=== PATIENT | male | born 1950 | race Caucasian/White ===

== ENCOUNTER 2022-11-15 13:33 | Inpatient (IN) | payer OTHER ==
[~2022-11-15] VITALS: Ht 172.7 cm; Wt 109.7 kg
[2022-11-15] VITALS (8 sets, daily range): BP systolic 94–154; BP diastolic 50–72
[2022-11-15] MEDS ORDERED: MORPHINE SULFATE 4 MG/ML SYR/VIAL IV ONE (13:45)
[2022-11-15] MEDS ORDERED: SODIUM CHL 0.9% 50 ML ONE (14:01)
[2022-11-15] MEDS ORDERED: MIDAZOLAM HCL 2MG/2ML 2ml VIAL (1mg/ml) ONE (14:01)
[2022-11-15] MEDS ORDERED: fentaNYL CITRATE 100 MCG/2 ML VL ONE (14:01)
[2022-11-15] MEDS ORDERED: ANGIOMAX 250 MG VIAL IV ONE (14:01)
[2022-11-15] MEDS ORDERED: IODIXANOL 320MG/ML 100ML BTL IV ONE (14:03)
[2022-11-15] MEDS ORDERED: VERAPAMIL 2.5MG/ML INJ 2ML VIAL IV ONE ×2 (14:11→14:50)
[2022-11-15] MEDS ORDERED: LIDOCAINE 2%HCL (LOCAL ANESTH.) INJ 10ml MDV ONE (14:11)
[2022-11-15 14:14] LABS: Albumin 2.8 g/dL (3.4-5.0); BUN/Creatinine Ratio 18.8; Calcium 8.5 mg/dL (8.5-10.1); Magnesium 2.4 mg/dL (1.6-2.6); Potassium 3.9 mmol/L (3.5-5.1)
[2022-11-15 14:16] LABS: Bilirubin, Total 0.8 mg/dL (0.2-1.0); Total Protein 5.6 g/dL (6.4-8.2)
[2022-11-15] MEDS ORDERED: EPINEPHrine HCL 1 MG/10 ML SYRG ONE (14:23)
[2022-11-15] MEDS ORDERED: ATROPINE SULF 1 MG/10ml SYR ONE (14:23)
[2022-11-15] MEDS ORDERED: EPTIFIBATIDE INJ (2MG/ML) 10ML VIAL IV ONE ×2 (14:42→14:54)
[2022-11-15] MEDS ORDERED: TICAGRELOR 90 MG TAB ONE (14:56)
[2022-11-15] MEDS ORDERED: NITROGLYCERIN 0.4 MG SL TAB SL PRN (15:15)
[2022-11-15] MEDS ORDERED: MORPHINE SULFATE INJ 2 MG/ml SYRG IV PRN (15:15)
[2022-11-15] MEDS ORDERED: EPTIFIBATIDE DRIP(0.75MG/ML) 100 ML IV ONE ×2 (15:15→16:32)
[2022-11-15 15:23] LABS: INR 1.01 (0.9-1.15); Partial Thromboplastin Time 29.3 sec (24.6-33.4)
[2022-11-15 15:33] LABS: Basophils # (auto) 0 10 ^3/uL (0-0.2); Basophils % (auto) 0.6 % (0.0-2.0); Eosinophils # (auto) 0 10 ^3/uL (0-0.8); Hematocrit 33.7 % (41.0-53.0); Hemoglobin 11.5 g/dL (13.5-17.5); Lymphocytes % (auto) 21.8 % (10.0-50.0); Mean Corpuscular Hemoglobin 32.1 pg (28.0-32.0); Mean Corpuscular Volume 94.2 fL (80.0-100.0); Monocytes # (auto) 0.5 10 ^3/uL (0-1.3); Neutrophils # (auto) 3.1 10 ^3/uL (1.6-8.6); Neutrophils % (auto) 66.6 % (37.0-80.0); Nucleated Red Blood Cells % 0.1 %; Red Blood Cells 3.58 10^6/uL (4.5-5.90); Red Cell Distribution Width 14.3 % (11.8-14.3); White Blood Cell 4.6 10^3/uL (4.4-10.8)
[2022-11-15] MEDS ORDERED: FAMOTIDINE 20 MG TAB PO ONE (15:45)
[2022-11-15] MEDS ORDERED: ALL100T PO (18:17)
[2022-11-15] MEDS ORDERED: POTA-220 PO (18:17)
[2022-11-15] MEDS ORDERED: FURO1TAB32 PO (18:17)
[2022-11-15 18:53] LABS: Urine Bacteria NONE SEEN /hpf (None Seen); Urine Blood 1+ /uL (Negative); Urine Specific Gravity 1.008 (1.001-1.035); Urine WBC <1 /hpf (0 - 3)
[2022-11-15] MEDS: ATORVASTATIN 20 MG TAB PO SCH (21:37)
[2022-11-15] MEDS: TICAGRELOR 90 MG TAB PO SCH (22:00)
[2022-11-16] VITALS (7 sets, daily range): BP systolic 76–93; BP diastolic 41–48
[2022-11-16 02:28] LABS: INR 1.08 (0.9-1.15); Partial Thromboplastin Time 33.9 sec (24.6-33.4)
[2022-11-16 06:14] LABS: Basophils # (auto) 0 10 ^3/uL (0-0.2); Basophils % (auto) 0.7 % (0.0-2.0); Eosinophils # (auto) 0 10 ^3/uL (0-0.8); Eosinophils % (auto) 0.8 % (0.0-7.0); Hematocrit 28.9 % (41.0-53.0); Hemoglobin 9.7 g/dL (13.5-17.5); Lymphocytes # (auto) 0.9 10 ^3/uL (0.4-5.4); Mean Corpuscular Hemoglobin 31.8 pg (28.0-32.0); Mean Corpuscular Hgb Conc. 33.8 g/dL (32.0-36.0); Mean Corpuscular Volume 94.3 fL (80.0-100.0); Monocytes # (auto) 0.7 10 ^3/uL (0-1.3); Monocytes % (auto) 12.4 % (0.0-12.0); Neutrophils # (auto) 3.9 10 ^3/uL (1.6-8.6); Neutrophils % (auto) 70.1 % (37.0-80.0); Red Blood Cells 3.06 10^6/uL (4.5-5.90); Red Cell Distribution Width 14.2 % (11.8-14.3); White Blood Cell 5.6 10^3/uL (4.4-10.8)
[2022-11-16] MEDS ORDERED: ALBUMIN 5% 250 ML IV ONE (06:15)
[2022-11-16 06:48] LABS: Albumin 2.3 g/dL (3.4-5.0); BUN/Creatinine Ratio 25.3; Bilirubin, Total 0.6 mg/dL (0.2-1.0)
[2022-11-16] MEDS ORDERED: ASPirin 81 mg TAB PO ONE (07:00)
[2022-11-16] MEDS ORDERED: CLOPIDOGREL 300 MG TAB PO ONE (07:00)
[2022-11-16] MEDS: FAMOTIDINE 20 MG TAB PO SCH (10:48)
[2022-11-16] MEDS: ASPirin 81 mg TAB PO SCH (11:45)
[2022-11-16] MEDS: TICAGRELOR 90 MG TAB PO SCH ×2 (11:45→21:37)
[2022-11-16] MEDS ORDERED: FUROSEMIDE 40 MG/4 ML VIAL IV SCH (13:15)
[2022-11-16] MEDS: OCTREOTIDE ACETATE 100 MCG/ML VL SUBCUT SCH ×3 (14:00→21:39)
[2022-11-16] MEDS: MIDODRINE HCL 10 MG TAB PO SCH (18:58)
[2022-11-16] MEDS: ATORVASTATIN 20 MG TAB PO SCH (21:36)
[2022-11-17] VITALS (7 sets, daily range): BP systolic 73–90; BP diastolic 40–51
[2022-11-17] MEDS: MIDODRINE HCL 10 MG TAB PO SCH ×3 (05:55→18:56)
[2022-11-17] MEDS: OCTREOTIDE ACETATE 100 MCG/ML VL SUBCUT SCH ×3 (05:59→22:00)
[2022-11-17 06:25] LABS: Basophils # (auto) 0 10 ^3/uL (0-0.2); Eosinophils # (auto) 0.1 10 ^3/uL (0-0.8); Mean Corpuscular Volume 95.3 fL (80.0-100.0); Monocytes # (auto) 0.6 10 ^3/uL (0-1.3); Monocytes % (auto) 12.1 % (0.0-12.0); White Blood Cell 4.9 10^3/uL (4.4-10.8)
[2022-11-17 06:28] LABS: Basophils % (auto) 0.9 % (0.0-2.0); Eosinophils % (auto) 1.5 % (0.0-7.0); Hematocrit 24.8 % (41.0-53.0); Hemoglobin 8.3 g/dL (13.5-17.5); Lymphocytes # (auto) 0.9 10 ^3/uL (0.4-5.4); Lymphocytes % (auto) 17.7 % (10.0-50.0); Mean Corpuscular Hemoglobin 32.1 pg (28.0-32.0); Mean Corpuscular Hgb Conc. 33.7 g/dL (32.0-36.0); Neutrophils # (auto) 3.3 10 ^3/uL (1.6-8.6); Neutrophils % (auto) 67.8 % (37.0-80.0); Nucleated Red Blood Cells % 0.1 %; Red Cell Distribution Width 14.4 % (11.8-14.3)
[2022-11-17 06:45] LABS: BUN/Creatinine Ratio 23.5; Potassium 4.6 mmol/L (3.5-5.1)
[2022-11-17] MEDS ORDERED: FUROSEMIDE 40 MG TAB PO SCH (10:00)
[2022-11-17] MEDS: FAMOTIDINE 20 MG TAB PO SCH (11:18)
[2022-11-17] MEDS: ASPirin 81 mg TAB PO SCH (11:19)
[2022-11-17] MEDS: TICAGRELOR 90 MG TAB PO SCH ×2 (11:19→22:00)
[2022-11-17] MEDS ORDERED: FUROSEMIDE 40 MG/4 ML VIAL IV ONE (12:45)
[2022-11-17] MEDS: ALBUMIN 25% 100 ML IV SCH ×2 (14:17→14:40)
[2022-11-17] MEDS: DOPamine 1600MCG/ML D5W 250 ML IV SCH (14:27)
[2022-11-17] MEDS: SEVELAMER 800 MG TAB PO SCH (18:56)
[2022-11-17] MEDS: ATORVASTATIN 20 MG TAB PO SCH (22:00)
[2022-11-18 05:00] VITALS: BP 99/45
[2022-11-18 06:03] LABS: Basophils # (auto) 0.1 10 ^3/uL (0-0.2); Eosinophils # (auto) 0.1 10 ^3/uL (0-0.8); Lymphocytes # (auto) 0.8 10 ^3/uL (0.4-5.4); Lymphocytes % (auto) 18.5 % (10.0-50.0); Monocytes # (auto) 0.5 10 ^3/uL (0-1.3); Neutrophils # (auto) 2.8 10 ^3/uL (1.6-8.6); Red Cell Distribution Width 14.2 % (11.8-14.3)
[2022-11-18 06:06] LABS: Basophils % (auto) 1.2 % (0.0-2.0); Hematocrit 23.9 % (41.0-53.0); Hemoglobin 8.3 g/dL (13.5-17.5); Mean Corpuscular Hemoglobin 32.8 pg (28.0-32.0); Mean Corpuscular Hgb Conc. 34.6 g/dL (32.0-36.0); Mean Corpuscular Volume 94.8 fL (80.0-100.0); Neutrophils % (auto) 66.3 % (37.0-80.0); Red Blood Cells 2.52 10^6/uL (4.5-5.90); White Blood Cell 4.2 10^3/uL (4.4-10.8)
[2022-11-18 06:09] LABS: Albumin 2.6 g/dL (3.4-5.0); Calcium 7.9 mg/dL (8.5-10.1); Potassium 4.3 mmol/L (3.5-5.1)
[2022-11-18 06:12] LABS: BUN/Creatinine Ratio 24.9; Bilirubin, Total 0.6 mg/dL (0.2-1.0); Total Protein 4.7 g/dL (6.4-8.2)
[2022-11-18] MEDS: MIDODRINE HCL 10 MG TAB PO SCH ×3 (06:21→17:30)
[2022-11-18] MEDS: SEVELAMER 800 MG TAB PO SCH ×3 (07:50→17:30)
[2022-11-18 09:10] VITALS: BP 82/34
[2022-11-18] MEDS: TICAGRELOR 90 MG TAB PO SCH ×2 (09:39→21:33)
[2022-11-18] MEDS: ASPirin 81 mg TAB PO SCH (09:39)
[2022-11-18] MEDS: FAMOTIDINE 20 MG TAB PO SCH (09:39)
[2022-11-18] MEDS: OCTREOTIDE ACETATE 100 MCG/ML VL SUBCUT SCH ×3 (09:49→21:35)
[2022-11-18 12:56] VITALS: BP 74/39
[2022-11-18 16:36] VITALS: BP 92/45
[2022-11-18] MEDS: DOPamine 1600MCG/ML D5W 250 ML IV SCH (17:27)
[2022-11-18] MEDS: ATORVASTATIN 20 MG TAB PO SCH (21:33)
[2022-11-18 22:00] VITALS: BP 106/43
[2022-11-19 05:00] VITALS: BP 90/44
[2022-11-19] MEDS: MIDODRINE HCL 10 MG TAB PO SCH ×3 (06:02→18:38)
[2022-11-19] MEDS: OCTREOTIDE ACETATE 100 MCG/ML VL SUBCUT SCH ×2 (06:02→14:00)
[2022-11-19 07:03] LABS: BUN/Creatinine Ratio 25.5; Potassium 4.1 mmol/L (3.5-5.1)
[2022-11-19 07:34] VITALS: BP 73/44
[2022-11-19] MEDS: SEVELAMER 800 MG TAB PO SCH ×3 (08:09→18:38)
[2022-11-19 08:15] VITALS: BP 82/39
[2022-11-19] MEDS: FAMOTIDINE 20 MG TAB PO SCH (09:12)
[2022-11-19] MEDS: ASPirin 81 mg TAB PO SCH (09:12)
[2022-11-19] MEDS: TICAGRELOR 90 MG TAB PO SCH (09:12)
[2022-11-19 12:45] VITALS: BP 91/48
[2022-11-19] MEDS ORDERED: CLOPIDOGREL 300 MG TAB PO ONE (14:30)
[2022-11-19] MEDS ORDERED: MID10T PO (14:42)
[2022-11-19] MEDS ORDERED: FAMO-12 PO (14:42)
[2022-11-19] MEDS ORDERED: SEVE800T PO (14:42)
[2022-11-19] MEDS ORDERED: ASPI-325 PO (14:42)
[2022-11-19] MEDS ORDERED: CLOP75TA28 PO (14:42)
[2022-11-19 17:08] VITALS: BP 94/50
[2022-11-19 17:42] VITALS: BP 73/43
== END 2022-11-19 18:41 | disposition home or self-care (01) | DRG 246 ==
LOC: EDBD 13:33 → ER 13:33 → TELE 15:14 → TELE-WESTW 16:52
PROVIDERS: ADMIT Internal Medicine; ATTEND Internal Medicine
PROC: 027036Z Dilation of Coronary Artery, One Artery with Three Drug-eluting Intraluminal Devices, Percutaneous Approach (ICD-10-PCS; principal; 2022-11-15)
PROC: B2111ZZ Fluoroscopy of Multiple Coronary Arteries using Low Osmolar Contrast (ICD-10-PCS; 2022-11-15)
PROC: 4A023N7 Measurement of Cardiac Sampling and Pressure, Left Heart, Percutaneous Approach (ICD-10-PCS; 2022-11-15)
DX: I21.3 ST elevation (STEMI) myocardial infarction of unspecified site (principal); N17.0 Acute kidney failure with tubular necrosis; K76.6 Portal hypertension; N18.4 Chronic kidney disease, stage 4 (severe); E44.0 Moderate protein-calorie malnutrition; I13.0 Hypertensive heart and chronic kidney disease with heart failure and stage 1 through stage 4 chronic kidney disease, or unspecified chronic kidney disease; E66.9 Obesity, unspecified; K70.31 Alcoholic cirrhosis of liver with ascites; K70.40 Alcoholic hepatic failure without coma; R04.0 Epistaxis; F10.10 Alcohol abuse, uncomplicated; Y90.9 Presence of alcohol in blood, level not specified; Z20.822 Contact with and (suspected) exposure to COVID-19; I25.10 Atherosclerotic heart disease of native coronary artery without angina pectoris; I95.9 Hypotension, unspecified; D64.9 Anemia, unspecified; I50.9 Heart failure, unspecified; Z68.36 Body mass index [BMI] 36.0-36.9, adult; Z83.3 Family history of diabetes mellitus; I25.2 Old myocardial infarction; Z79.02 Long term (current) use of antithrombotics/antiplatelets; Z79.899 Other long term (current) drug therapy; Z82.3 Family history of stroke
CPT/HCPCS: 36415; 71045; 76775; 80048; 80053; 81001; 83735; 83880; 84100; 84484; 85025; 85610; 85730; 87081; 87426; 93306; 99152; 99153; G0378; J2001; J2250; P9047; Q9967